=== PATIENT | male | born 1965 | race Caucasian/White ===

== ENCOUNTER 2017-06-15 10:35 | Emergency (ER) | payer MEDICARE ==
[~2017-06-15 10:35] MED LIST: CLINDAMYCIN HC300 MG PO; HYDROCODONE BIT1 T11 PO; MOTRIN800 MG PO; ULTRAM50 MG PO
[2017-06-15] MEDS ORDERED: KEFLEX500 M1 PO (11:07)
[2017-06-15] MEDS ORDERED: NAPROSYN500 MG PO (11:07)
== END 2017-06-15 11:45 | disposition home or self-care (01) ==
LOC: ED 10:35
DX: S61.011A Laceration without foreign body of right thumb without damage to nail, initial encounter (principal); Z23 Encounter for immunization; W26.8XXA Contact with other sharp object(s), not elsewhere classified, initial encounter; Y93.89 Activity, other specified; Y92.89 Other specified places as the place of occurrence of the external cause; Y99.8 Other external cause status